=== PATIENT | female | born 2000 | race Two or more races ===

== ENCOUNTER 2022-11-17 23:48 | Emergency (ER) | payer OTHER ==
[~2022-11-17] VITALS: Ht 160 cm; Wt 71.7 kg
[2022-11-18] MEDS ORDERED: PRENA1 TRUE CO1 EACH PO (00:29)
[2022-11-18 03:27] LABS: HEMATOCRIT 35.3 % (36.0-45.00); HEMOGLOBIN 11.9 g/dL (12.0-15.00); MEAN CELL VOLUME 84.8 fL (80.00-100.00); MEAN CORPUSCULAR HEMOGLOBIN 28.6 pg (27.00-32.0); MEAN CORPUSCULAR HGB CONC 33.7 g/dl (32.0-36.0); PLATELET COUNT 247 K/uL (150-450); RED BLOOD COUNT 4.17 M/uL (4.00-6.00); RED CELL DISTRIBUTION WIDTH 14.5 % (11.5-14.5)
[2022-11-18 03:36] LABS: CALCIUM 8.6 mg/dL (8.5-10.1); CREATININE SERUM 0.56 mg/dL (0.55-1.02); POTASSIUM 3.78 mEq/L (3.5-5.1)
== END 2022-11-18 05:29 | disposition home or self-care (01) ==
LOC: ER 23:48
DX: O21.0 Mild hyperemesis gravidarum (principal); Z3A.09 9 weeks gestation of pregnancy; R10.2 Pelvic and perineal pain